=== PATIENT | female | born 1970 | race African-American/Black ===

== ENCOUNTER 2017-08-16 16:19 | Emergency (ER) | payer SELFPAY ==
[~2017-08-16] VITALS: Ht 167.6 cm; Wt 72.6 kg
[2017-08-16 16:59] VITALS: BP 149/92; Ht 167.6 cm; Wt 72.6 kg
== END 2017-08-16 19:31 | disposition left against medical advice (07) ==
LOC: ED 16:19
DX: Z53.21 Procedure and treatment not carried out due to patient leaving prior to being seen by health care provider (principal)